=== PATIENT | female | born 1950 | race Hispanic/Latino ===

== ENCOUNTER 2016-07-11 07:37 | Outpatient (CLI) | payer MEDICARE, MEDICAID ==
[2016-07-11 08:45] LABS: ALT (SGPT) 21 U/L (8-55); AST (SGOT) 21 U/L (5-34); Albumin 4.4 g/dL (3.4-4.8); Alkaline Phosphatase 104 U/L (40-150); Anion Gap 15 mmol/L (10-20); BUN (Urea Nitrogen) 19 mg/dL (9.8-20.1); Bilirubin, Total 0.8 mg/dL (0.2-1.2); Calc. Creatinine Clearance 0 mL/min (70-130); Calcium 9.6 mg/dL (7.8-10.44); Carbon Dioxide 23 mmol/L (23-31); Chloride 107 mmol/L (98-107); Cholesterol 209 mg/dl (< 200 Desired); Estimated GFR-MDRD 46; Globulin 2.5 g/dL (2.4-3.5); Glucose 102 mg/dL (80-115); HDL Cholesterol 70 mg/dL (>60 Neg Risk); LDL Cholesterol, Calculated 118 mg/dL; Potassium 3.9 mmol/L (3.5-5.1); Protein, Total 6.9 g/dL (6.0-8.3); Sodium 141 mmol/L (136-145); Triglycerides 107 mg/dL (Less than 150)
== END 2016-07-11 07:38 | disposition home or self-care (01) ==
LOC: NAV LAB 07:37
PROVIDERS: ATTEND Internal Medicine Nephrology
DX: E78.5 Hyperlipidemia, unspecified (principal); I12.9 Hypertensive chronic kidney disease with stage 1 through stage 4 chronic kidney disease, or unspecified chronic kidney disease; N18.3 Chronic kidney disease, stage 3 (moderate)
CPT/HCPCS: 36415; 80053; 80061

== ENCOUNTER 2016-11-03 07:08 | Outpatient (CLI) | payer MEDICARE, MEDICAID ==
[2016-11-03 08:22] LABS: ALT (SGPT) 19 U/L (8-55); AST (SGOT) 17 U/L (5-34); Albumin 4.4 g/dL (3.4-4.8); Alkaline Phosphatase 93 U/L (40-150); Anion Gap 14 mmol/L (10-20); BUN (Urea Nitrogen) 24 mg/dL (9.8-20.1); Bilirubin, Total 0.5 mg/dL (0.2-1.2); Calc. Creatinine Clearance 0 mL/min (70-130); Calcium 9.7 mg/dL (7.8-10.44); Carbon Dioxide 23 mmol/L (23-31); Cardiac Risk 3.1 (Less than 4.5); Chloride 109 mmol/L (98-107); Cholesterol 205 mg/dl (< 200 Desired); Estimated GFR-MDRD 53; Globulin 2.5 g/dL (2.4-3.5); Glucose 101 mg/dL (80-115); HDL Cholesterol 67 mg/dL (>60 Neg Risk); LDL Cholesterol, Calculated 116 mg/dL; Potassium 4.2 mmol/L (3.5-5.1); Protein, Total 6.9 g/dL (6.0-8.3); Sodium 142 mmol/L (136-145); Triglycerides 108 mg/dL (Less than 150)
== END 2016-11-03 07:09 | disposition home or self-care (01) ==
LOC: NAV LAB 07:08
PROVIDERS: ATTEND Family Medicine
DX: E78.5 Hyperlipidemia, unspecified (principal); I10 Essential (primary) hypertension
CPT/HCPCS: 80053; 80061

== ENCOUNTER 2017-11-08 14:02 | Outpatient (CLI) | payer MEDICARE, MEDICAID ==
--- NOTE | 2017-11-08 15:20 | RAD ---
RIGHT KNEE 4 VIEWS: Date: 11/08/17 HISTORY: Knee pain. FINDINGS: There are moderate arthritic changes of the knee. There is degenerative spurring of the patellofemora l, medial, and lateral compartments, and a small joint effusion. Vascular calcifications are also pre sent. The bones appear somewhat demineralized. IMPRESSION: Moderate osteoarthritic changes of the knee. POS: [facility]
--- NOTE | 2017-11-08 15:21 | RAD ---
LEFT KNEE 4 VIEWS: CLINICAL HISTORY: Knee pain. FINDINGS: There is moderate medial compartment narrowing. There is degenerative spurring of the medial lateral and to a lesser extent the patellofemoral compartment. IMPRESSION: Moderate osteoarthritic changes of the knee with some moderate medial compartment narrowing. POS: [facility]
== END 2017-11-08 14:03 | disposition home or self-care (01) ==
LOC: NAV RAD 14:02
PROVIDERS: ATTEND Family Medicine
DX: M25.561 Pain in right knee (principal); M25.562 Pain in left knee; M17.11 Unilateral primary osteoarthritis, right knee; M17.12 Unilateral primary osteoarthritis, left knee

== ENCOUNTER 2019-09-25 15:07 | Emergency (ER) | payer MEDICARE, MEDICAID ==
[2019-09-25] MEDS ORDERED: Adacel (T-DAP) 0.5 ML SYRINGE ONE (15:31)
[2019-09-25] MEDS ORDERED: Acetaminophen 500 MG TAB ONE (15:31)
--- NOTE | 2019-09-25 15:53 | RAD ---
Radiograph left fourth digit 3 views: 09/25/2019 HISTORY: 69-year-old female status post acute traumatic injury to the left ring finger FINDINGS: No fracture or dislocation. Mild DJD at the IP. IMPRESSION: No fracture.
== END 2019-09-25 16:30 | disposition home or self-care (01) ==
LOC: NAV ERS 15:07
DX: S62.665B Nondisplaced fracture of distal phalanx of left ring finger, initial encounter for open fracture (principal); I10 Essential (primary) hypertension; W22.8XXA Striking against or struck by other objects, initial encounter
CPT/HCPCS: 90471; 90715